=== PATIENT | female | born 1945 | race Hispanic/Latino ===

== ENCOUNTER 2017-09-02 06:08 | Emergency (ER) | payer MEDICARE ==
[2017-09-02] MEDS ORDERED: DEXAMETHASONE SOD PHOSPHATE 10MG/ML 1ML VIAL ONE (06:26)
[2017-09-02] MEDS ORDERED: KETOROLAC TROMETHAMINE 30MG/ML ONE (06:27)
== END 2017-09-02 06:41 | disposition home or self-care (01) ==
LOC: EDH 06:08
DX: M06.9 Rheumatoid arthritis, unspecified (principal); I10 Essential (primary) hypertension; E78.5 Hyperlipidemia, unspecified; E07.9 Disorder of thyroid, unspecified; Z90.710 Acquired absence of both cervix and uterus; Z90.49 Acquired absence of other specified parts of digestive tract
CPT/HCPCS: 96372 ×2; 99284; J1100; J1885